=== PATIENT | female | born 1950 | race Caucasian/White ===

== ENCOUNTER 2018-03-31 06:45 | Inpatient (IN) ==
[2018-03-27 13:23] LABS: Appearance,Urine CLEAR; Bacteria,Urine 0 /hpf (0); Bilirubin,Urine NEG (NEG); Color,Urine YELLOW; Glucose,Urine (UA) NEGATIVE (NEG); Leukocyte Esterase,Urine 25 /uL (NEG); Mucus,Urine FEW /hpf (0); Protein,Urine NEG (NEG); Specific Gravity,Urine 1.023 (1.000-1.035); Urine Blood 0.03 mg/dL (<0.03); Urine RBC 7 /hpf (0-1); Urine Squamous Epithelial Cell 1 /hpf (0-4); Urine WBC 1 /hpf (0-4); Urobilinogen,Urine NEG (NEG)
[2018-03-27 14:35] LABS: Basophils # (Auto) 0 K/mcL (0.0-0.3); Basophils % (Auto) 0.4 % (0.0-2.0); Eosinophils # (Auto) 0.1 K/mcL (0.0-0.7); Eosinophils % (Auto) 1.1 % (0.0-7.0); Granulocytes % (Auto) 60.6 % (38.0-78.0); Lymphocytes # (Auto) 1.6 K/mcL (1.5-4.8); Lymphocytes % (Auto) 30.2 % (15.5-49.0); Mean Cell Volume 99.2 fL (80.0-100.0); Mean Corpuscular HGB Conc 34.3 g/dL (31.0-36.0); Monocytes # (Auto) 0.4 K/mcL (0.1-0.9); Monocytes % (Auto) 7.7 % (1.0-12.0); Platelet Count 159 K/mcL (140-440); RBC 3.72 M/mcL (4.00-5.20); Red Cell Distribution Width 13.6 % (11.5-14.5)
[2018-03-27 14:46] LABS: Blood Urea Nitrogen 19 mg/dl (8-23)
[2018-03-31] MEDS ORDERED: CELECOXIB 200 MG CAPSULE PO SCH (07:00)
[2018-03-31] MEDS ORDERED: PREGABALIN 75 MG CAPSULE PO SCH (07:00)
[2018-03-31] MEDS ORDERED: ceFAZolin 1 GM VIAL IV SCH (07:00)
[2018-03-31] MEDS ORDERED: oxyCODONE 10 MG TAB.ER.12H PO SCH (07:00)
[2018-03-31] MEDS ORDERED: 0.9 % SODIUM CHLORIDE 9 ML, KETOROLAC 30 MG, ROPIVACAINE HCL/PF 49.5 ML, EPINEPHrine 0.... IJ SCH (07:00)
[2018-03-31] MEDS ORDERED: TRANEXAMIC ACID 1,000 MG/10 ML VIAL IV ONE (09:00)
[2018-03-31] MEDS ORDERED: LIDOCAINE HCL/PF 100 MG/5 ML SYRINGE IV ONE (09:00)
[2018-03-31] MEDS ORDERED: PROPOFOL 200 MG/20 ML VIAL IV ONE (09:00)
[2018-03-31] MEDS ORDERED: GLYCOPYRROLATE 0.2 MG/ML VIAL IV ONE (09:00)
[2018-03-31] MEDS ORDERED: KETAMINE 100 MG/ML ML IV ONE (09:00)
[2018-03-31] MEDS ORDERED: ONDANSETRON 4 MG/2 ML VIAL IV ONE (09:00)
[2018-03-31] MEDS ORDERED: ROPIVACAINE HCL/PF 30 ML VIAL IJ ONE (09:00)
[2018-03-31] MEDS ORDERED: PHENYLEPHRINE 10 MG/ML VIAL IV ONE (09:00)
[2018-03-31] MEDS ORDERED: MIDAZOLAM 2 MG/2 ML VIAL IV ONE (09:00)
[2018-03-31] MEDS ORDERED: BENZOCAINE/MENTHOL 1 LOZENGE PO PRN ×2 (10:14→10:25)
[2018-03-31] MEDS ORDERED: fentaNYL 100 MCG/2 ML VIAL IV PRN (10:14)
[2018-03-31] MEDS ORDERED: IPRATROPIUM/ALBUTEROL 3 ML AMPUL.NEB NEB PRN (10:14)
[2018-03-31] MEDS ORDERED: ACETAMINOPHEN 1,000 MG/100 ML BOTTLE IV ONE (10:14)
[2018-03-31] MEDS ORDERED: MEPERIDINE 25 MG/ML SYRINGE IV PRN (10:14)
[2018-03-31] MEDS ORDERED: ONDANSETRON 4 MG/2 ML VIAL IV PRN ×2 (10:14→10:25)
[2018-03-31] MEDS ORDERED: LACTATED RINGERS 1,000 ML IV SCH (10:15)
[2018-03-31] MEDS ORDERED: traMADol 50 MG TABLET PO PRN (10:24)
[2018-03-31] MEDS ORDERED: ALBUTEROL SULFATE 1 PUFF INHALER INH PRN (10:24)
--- NOTE | 2018-03-31 10:24 | Brief Operative Note ---
Date of procedure: 03/31/18 Pre-op diagnosis: left knee oa Post-op diagnosis: same Procedure: left total knee arthroplasty Grafts/Implants: Yes Anesthesia: spinal Complications: none Surgeon: David Tyler Visually Impaired Teacher: Alia Suh Estimated blood loss (cc): 150 Tourniquet Time (Minutes): 78 Specimens Removed/Pathology: none sent Condition: stable Disposition: PACU
[2018-03-31] MEDS ORDERED: ACETAMINOPHEN 325 MG TABLET PO PRN (10:25)
[2018-03-31] MEDS ORDERED: METHOCARBAMOL 750 MG TABLET PO PRN (10:25)
[2018-03-31] MEDS ORDERED: FLEETS ADULT ENEMA PR PRN (10:25)
[2018-03-31] MEDS ORDERED: ONDANSETRON ODT 4 MG TABLET SL PRN (10:25)
[2018-03-31] MEDS ORDERED: TRANEXAMIC ACID 1,000 MG/10 ML VIAL IV SCH (10:25)
[2018-03-31] MEDS ORDERED: MAGNESIUM HYDROXIDE 30 ML ORAL.SUSP PO PRN (10:25)
[2018-03-31] MEDS ORDERED: BISACODYL 10 MG SUPP.RECT PR PRN (10:25)
[2018-03-31] MEDS ORDERED: POLYETHYLENE GLYCOL 3350 17 GM PACKET PO PRN (10:25)
[2018-03-31] MEDS ORDERED: GENTAMICIN SULFATE 800 MG/20 ML VIAL IR ONE (10:51)
--- NOTE | 2018-03-31 11:22 | Operative Note ---
DATE OF OPERATION: 03/31/2018 PREOPERATIVE DIAGNOSIS: Degenerative joint disease, left knee. POSTOPERATIVE DIAGNOSIS: Degenerative joint disease, left knee. PROCEDURE: Left total knee arthroplasty. SURGEON: Prem Tyler M.D. HEAT REGULATOR SURGEON: Alia Suh PA-C ANESTHESIA: Spinal with LMA assist. ESTIMATED BLOOD LOSS: 150 mL COMPLICATIONS: None noted. SPECIMENS REMOVED: None. DRAINS: None. TOURNIQUET TIME: 78 minutes at 300 mmHg. IMPLANTS: DePuy CMW2 bone cement standard x4, DePuy Attune femoral posterior stabilized size 6 left narrow, DePuy Attune tibial insert fixed bearing posterior stabilized size 6, 5 mm AOX, DePuy Attune tibial system revision, tibial based fixed bearing size 4 cemented, DePuy Attune patella medialized dome 35 mm cemented AOX. INDICATIONS: The patient has had a long-standing history of worsening pain in the knee that has failed conservative treatment. Radiographs have confirmed advanced degenerative joint disease. After a long discussion about treatment options, the patient elected to proceed with a knee arthroplasty. The risks and benefits were discussed with the patient in detail including, but not limited to, the risks of anesthesia, problems with the heart or lungs related to anesthesia, infection, compromise or injury to the nerves and blood vessels, deep venous thrombosis, pulmonary embolism, pneumonia, continued pain after surgery, worsening pain or symptoms after surgery, swelling, loss of motion, instability, leg length discrepancy, and need for repeat surgery. DESCRIPTION OF PROCEDURE: The patient was seen in the pre-anesthesia waiting room where all questions were answered and the correct side and site were identified and marked. The patient was transferred to the operating room and administered the anesthetic and given pre-operative antibiotics. A time-out was then called. The extremity was prepped and draped, exsanguinated, and the tourniquet was inflated to 300 mmHg. A midline skin incision was then made with a standard medial parapatellar arthrotomy. Debridement of the menisci, ACL, and PCL was performed followed by balancing releases in the medial lateral plane. We then established intramedullary access to both the femur and tibia in a standard fashion. The femoral guide aries was initially placed with the distal femoral guide, pinned into place, and the distal femoral cut was performed and checked with a flat plate. We then turned our attention to the tibia. The intramedullary guide was placed with the proximal tibial cutting block. The block was appropriately positioned off the affected side, varus and valgus was checked with the extra-medullary guide, and the block was pinned into place. The proximal tibial cut was performed and the tibia was prepared for the tibial implant with appropriate rotation. The tibia, femur, and posterior compartment were debrided of osteophytes, loose bodies, and meniscal fragments We then used the gap balancing technique to balance extension with the first two cuts and good balancing was obtained with a 10 millimeter gap block. We turned our attention back to the femur and used the referencing block and implant to size appropriately. Using the gap balancing technique for the flexion space we set our rotation of the femur off the tibial cut. Anesthesia gave the patient 1 gram of Tranexamic Acid via an intravenous route. We placed the 4 in 1 cutting block and made anterior, posterior, and chamfer cuts. Box plasty cuts were then made in a standard fashion for the posterior stabilized prosthesis. We then completed osteophyte release and posterior capsule release from the posterior compartment. Trials were placed and we chose the polyethylene insert thickness that provided the best stability in all planes. With the trials in place, we did a measured resection for a resurfacing patella. We sized the patella and placed the patella trial and performed a lateral facetectomy with the saw and rongeur. Good tracking was obtained. We removed all trials, irrigated and dried all cut surfaces. We cemented the components into place including tibia, femur and patella. We placed a trial liner and held the knee in full extension with the patella compressed while the cement cured. We then removed all excess cement and placed the final polyethylene tibiofemoral component. Irrigation with 3 liters of antibiotic saline was then performed using jet-lavage. We let the tourniquet down and coagulated bleeding vessels. We injected a 100 cubic centimeter volume including Ropivacaine 49.25 cubic centimeters at 5 milligrams per cubic centimeter, Ketorolac 30 milligrams, and Epinephrine 0.5 milligrams into 100 cubic centimeters volume of normal saline. We closed the retinaculum with looped #2 Stratafix and 0 Vicryl. We closed the subcutaneous tissue and skin in layers out to Dermabond on the skin. A sterile pressure dressing was applied. All needle and sponge counts were correct. The patient was transferred to the recovery room in stable condition. [id number] Job ID: [id number] Doc ID: [id number] Prem Tyler MD
--- NOTE | 2018-03-31 11:35 | XRay Report ---
HISTORY: Postop knee replacement FINDINGS: There is a well positioned total knee prosthesis. No fracture is present and there are no abnormal soft tissue calcifications around the joint. IMPRESSION: Well-positioned left knee prosthesis Interpreted and Authenticated by: Scar Dolan 03/31/18
[2018-03-31] MEDS: 0.9 % SODIUM CHLORIDE 1,000 ML IV SCH ×2 (12:20→22:29)
[2018-03-31] MEDS: KETOROLAC 15 MG/ML VIAL IV SCH ×3 (12:22→23:46)
[2018-03-31] MEDS: PRAMIPEXOLE 0.25 MG TABLET PO SCH ×3 (12:22→23:47)
[2018-03-31] MEDS: 0.9 % SODIUM CHLORIDE 10 ML SYRINGE IV SCH ×2 (13:12→21:10)
[2018-03-31] MEDS: ceFAZolin 1 GM VIAL IV SCH ×2 (15:49→23:46)
[2018-03-31] MEDS: oxyCODONE/APAP 5/325MG TABLET PO PRN ×3 (16:05→20:15)
[2018-03-31] MEDS: SENNOSIDES 1 TABLET PO SCH (20:15)
[2018-03-31] MEDS: DOCUSATE SODIUM 100 MG CAPSULE PO SCH (20:15)
[2018-03-31] MEDS: SIMVASTATIN 20 MG TABLET PO SCH (20:15)
[2018-03-31] MEDS: ASPIRIN 325 MG ENTERIC COATED TABLET PO SCH (20:16)
[2018-03-31] MEDS: clonazePAM 0.5 MG TABLET PO SCH (20:16)
[2018-04-01] MEDS: 0.9 % SODIUM CHLORIDE 10 ML SYRINGE IV SCH ×4 (00:16→20:23)
[2018-04-01] MEDS: oxyCODONE/APAP 5/325MG TABLET PO PRN ×5 (00:17→20:24)
[2018-04-01] MEDS: KETOROLAC 15 MG/ML VIAL IV SCH ×4 (05:20→23:37)
[2018-04-01] MEDS: PRAMIPEXOLE 0.25 MG TABLET PO SCH ×4 (05:21→23:37)
--- NOTE | 2018-04-01 07:21 | Orthopedic Progress Note ---
Subjective Patient information: Note initiated : 04/01/18 at 7:20 am Service Date, if different from initiated Date: [] Patient: Siobhan Mijares 67 y/o F admitted on 03/31/18 for Left Total Knee Arthroplasty. Chief Complaint: [] Interval history: doing well. slow to mobilize Objective Vital signs: Vital Signs Temp Pulse Resp BP BP BP Pulse Ox 04/01/18 07:08 96.7 F L 72 16 95/57 92 04/01/18 03:05 97.7 F 69 16 117/69 92 03/31/18 23:30 71 14 100/64 91 03/31/18 17:29 97.3 F 73 20 120/67 93 03/31/18 14:42 97.4 F 71 20 104/58 93 03/31/18 14:00 103/61 03/31/18 13:30 79 89/58 92 03/31/18 12:55 86 122/69 95 03/31/18 12:28 78 146/61 95 03/31/18 12:10 75 150/70 96 03/31/18 11:55 77 146/67 96 03/31/18 11:40 79 142/64 98 03/31/18 11:34 16 138/69 03/31/18 11:25 97.5 F 76 18 138/69 92 03/31/18 11:11 97.0 F 82 16 142/59 98 03/31/18 10:58 80 20 139/45 100 03/31/18 10:53 82 20 124/65 100 03/31/18 10:48 81 19 126/56 100 03/31/18 10:43 98.1 F 78 17 114/68 99 Intake and Output 03/31/18 04/01/18 04/01/18 21:59 05:59 13:59 Intake Total 1940 / 1940 150 / 150 Output Total 300 / 300 Balance 1640 / 1640 150 / 150 Intake: IV 1000 / 1000 Sodium Chloride 0.9% 1,000 ml @ 1000 / 1000 125 mls/hr IV .Q8H [facility] Rx#: [id number] Oral 940 / 940 150 / 150 Output: Void Amount 300 / 300 Other: Meal Dinner Percent of Meal Consumed 75% # Voids 1 1 Weight 239 lb Intake & Output: Intake & Output 03/31/18 04/01/1804/01/18 21:59 05:59 13:59 Intake Total 1940 / 1940 150 / 150 Output Total 300 / 300 Balance 1640 / 1640 150 / 150 Weight 239 lb Intake: IV 1000 / 1000 Sodium Chloride 0.9% 1,000 ml @ 1000 / 1000 125 mls/hr IV .Q8H [facility] Rx#: [id number] Oral 940 / 940 150 / 150 Output: Void Amount 300 / 300 Other: Meal Dinner Percent of Meal Consumed 75% # Voids 1 1 Incision: Yes healing Incision clean and dry: Yes Dressing: Yes clean, Yes dry, Yes intact Weight bearing status: full Neurological exam IM: Yes abnormal gait, Yes alert, Yes oriented X3, Yes motor sensory intact, Yes neurovascular intact Extremities exam IM: No calf tenderness, Yes joint swelling, Yes Foot pink and warm, Yes neurovascular intact - Labs CBC & BMP: 04/01/18 04:46 03/27/18 11:50 Labs: Orthopedic Labs 03/27/18 11:50 PT 13.6 INR 1.0 04/01/18 03/27/18 04:46 11:51 Hgb 11.3 L 12.6 Hct 33.4 L 36.9 Assessment and Plan (1) Knee osteoarthritis pod 1 s/p tka wbat pain control dvt prophylaxis d/c planning - likely rehab friday Status: Acute
--- NOTE | 2018-04-01 07:22 | Discharge Summary ---
Ortho Discharge - TKA - Patient Instructions Diet: Regular Diet Activity: activity as tolerated, ambulate with assistive device, weight bearing as tolerated Total Knee Protocol: For Total Knee: Start ROM ALBARO with stationary bike or rocking chair. Work on gaining full extension of knee. Posterior dislocation precautions provided. Hip abductor strengthening and gait training instructions provided. Apply Cryocuff as instructed. Dressing Care: May shower in 2 days - Problem Maintenance (1) Knee osteoarthritis Status: Acute - Follow Up Plan Follow Up Appointments: Alia Suh PA-C [Physician Financial Administrative Assistant] - 04/15/18 11:00 am Disposition: Xfer SNF Prognosis: Good Rehab Potential: Good I certify that the patient requires SNF services: Yes Overall status at discharge: patient is progressing back to baseline
[2018-04-01] MEDS: LEVOTHYROXINE 150 MCG TABLET PO SCH (07:52)
[2018-04-01] MEDS: LOSARTAN 50 MG TABLET PO SCH (08:55)
[2018-04-01] MEDS: DOCUSATE SODIUM 100 MG CAPSULE PO SCH ×2 (08:55→20:23)
[2018-04-01] MEDS: ASPIRIN 325 MG ENTERIC COATED TABLET PO SCH ×2 (08:55→20:23)
[2018-04-01] MEDS: SENNOSIDES 1 TABLET PO SCH (20:23)
[2018-04-01] MEDS: clonazePAM 0.5 MG TABLET PO SCH (20:23)
[2018-04-01] MEDS: SIMVASTATIN 20 MG TABLET PO SCH (20:23)
[2018-04-02] MEDS: oxyCODONE/APAP 5/325MG TABLET PO PRN ×3 (03:53→19:34)
[2018-04-02] MEDS: KETOROLAC 15 MG/ML VIAL IV SCH (05:34)
[2018-04-02] MEDS: PRAMIPEXOLE 0.25 MG TABLET PO SCH ×4 (05:34→23:06)
[2018-04-02] MEDS: 0.9 % SODIUM CHLORIDE 10 ML SYRINGE IV SCH ×3 (05:35→20:50)
--- NOTE | 2018-04-02 06:40 | Orthopedic Progress Note ---
Subjective Patient information: Note initiated : 04/02/18 at 6:38 am Service Date, if different from initiated Date: [] Patient: Siobhan Mijares 67 y/o F admitted on 03/31/18 for Left Total Knee Arthroplasty. Chief Complaint: [POD #2 s/p left TKA Patient doing very well. Reports minimal pain. Ambulating well. No CP, SOB, nausea, numbness, tingling or calf pain. No questions or concerns.] Objective Vital signs: Vital Signs Temp Pulse Resp BP BP BP Pulse Ox 04/02/18 03:48 97.8 F 75 22 152/60 93 04/02/18 00:00 98.4 F 77 22 136/74 93 04/01/18 20:00 98.5 F 82 24 H 137/81 95 04/01/18 15:17 97.8 F 75 20 134/70 95 04/01/18 12:35 96.7 F L 78 16 120/73 96 04/01/18 08:57 101/62 04/01/18 07:42 16 95/57 04/01/18 07:08 96.7 F L 72 16 95/57 92 Intake and Output 04/01/18 04/02/18 04/02/18 21:59 05:59 13:59 Intake Total 800 / 800 275 / 275 Output Total 325 / 325 1150 / 1150 Balance 475 / 475 -875 / -875 Intake: Oral 800 / 800 275 / 275 Output: Void Amount 325 / 325 1150 / 1150 Other: Meal Dinner Percent of Meal Consumed 100% Urine Appearance Clear Clear Urine Color Light [place] Dark Yellow Urine Odor Strong Normal Weight 241 lb Intake & Output: Intake & Output 04/01/18 04/02/18 04/02/18 21:59 05:59 13:59 Intake Total 800 / 800 275 / 275 Output Total 325 / 325 1150 / 1150 Balance 475 / 475 -875 / -875 Weight 241 lb Intake: Oral 800 / 800 275 / 275 Output: Void Amount 325 / 325 1150 / 1150 Other: Meal Dinner Percent of Meal Consumed 100% Urine Appearance Clear Clear Urine Color Light [place] Dark Yellow Urine Odor Strong Normal Incision: Yes healing, No draining, No red, No swollen, No inflamed, Yes clean and dry Incision clean and dry: Yes Dressing: Yes clean, Yes dry, Yes intact Weight bearing status: as tolerated Range of motion: full foot and ankle Neurological exam IM: Yes alert, Yes oriented X3, Yes motor sensory intact, Yes neurovascular intact Extremities exam IM: No calf tenderness, Yes normal capillary refill, No Brett' s sign, Yes Foot pink and warm, Yes neurovascular intact - Periperhal Pulses Peripheral pulses: 2+: dorsalis pedis (L), dorsalis pedis (R), posterior tibialis (L), posterior tibialis (R) - Labs CBC & BMP: 04/02/18 04:50 03/27/18 11:50 Labs: Orthopedic Labs 03/27/18 11:50 PT 13.6 INR 1.0 04/02/18 04/01/18 03/27/18 04:50 04:46 11:51 Hgb 10.4 L 11.3 L 12.6 Hct 31.0 L 33.4 L 36.9 Assessment and Plan (1) Knee osteoarthritis POD #2 s/p left TKA: -d/c to [facility] Friday04/03/18 -pain control -ASA 325mg BID x 4 weeks for DVT prophylaxis -WBAT -dermabond protocol -f/u in office 10-14 days for PO Status: Acute
[2018-04-02] MEDS: LOSARTAN 50 MG TABLET PO SCH (08:53)
[2018-04-02] MEDS: DOCUSATE SODIUM 100 MG CAPSULE PO SCH ×2 (08:53→20:49)
[2018-04-02] MEDS: LEVOTHYROXINE 150 MCG TABLET PO SCH (08:54)
[2018-04-02] MEDS: ASPIRIN 325 MG ENTERIC COATED TABLET PO SCH ×2 (08:54→20:49)
[2018-04-02] MEDS: SIMVASTATIN 20 MG TABLET PO SCH (20:49)
[2018-04-02] MEDS: clonazePAM 0.5 MG TABLET PO SCH (20:49)
[2018-04-02] MEDS: SENNOSIDES 1 TABLET PO SCH (20:49)
[2018-04-03] MEDS: oxyCODONE/APAP 5/325MG TABLET PO PRN (00:57)
[2018-04-03] MEDS: PRAMIPEXOLE 0.25 MG TABLET PO SCH ×2 (05:36→11:44)
[2018-04-03] MEDS: 0.9 % SODIUM CHLORIDE 10 ML SYRINGE IV SCH (05:36)
[2018-04-03] MEDS: LEVOTHYROXINE 150 MCG TABLET PO SCH (07:00)
--- NOTE | 2018-04-03 07:42 | Orthopedic Progress Note ---
Subjective Patient information: Note initiated : 04/03/18 at 7:41 am Service Date, if different from initiated Date: [] Patient: Siobhan Mijares 67 y/o F admitted on 03/31/18 for Left Total Knee Arthroplasty. Chief Complaint: [] Interval history: doing well today. no complaints, did stairs. Objective Vital signs: Vital Signs Temp Pulse Resp BP Pulse Ox 04/03/18 07:01 97.8 F 18 130/72 98 04/03/18 03:25 97.6 F 79 22 151/76 97 04/02/18 23:07 98.0 F 76 22 129/74 97 04/02/18 20:00 98.5 F 76 18 131/70 96 04/02/18 16:58 98.1 F 80 20 145/71 96 04/02/18 16:00 80 04/02/18 12:00 74 04/02/18 08:00 73 Intake and Output 04/02/18 04/03/18 04/03/18 21:59 05:59 13:59 Intake Total 800 / 800 175 / 175 Output Total 1100 / 1100 1752 / 1752 Balance -300 / -300 -1577 / -1577 Intake: Oral 800 / 800 175 / 175 Output: Void Amount 1100 / 1100 1750 / 1750 # of times incontinent of urine 2 / 2 Other: Urine Appearance Clear Urine Color Bright Yellow Urine Odor Normal # Voids 1 Weight 239 lb Intake & Output: Intake & Output 04/02/18 04/03/18 04/03/18 21:59 05:59 13:59 Intake Total 800 / 800 175 / 175 Output Total 1100 / 1100 1752 / 1752 Balance -300 / -300 -1577 / -1577 Weight 239 lb Intake: Oral 800 / 800 175 / 175 Output: Void Amount 1100 / 1100 1750 / 1750 # of times incontinent of urine 2 / 2 Other: Urine Appearance Clear Urine Color Bright Yellow Urine Odor Normal # Voids 1 Incision: Yes healing Incision clean and dry: Yes Dressing: Yes clean, Yes dry, Yes intact Weight bearing status: full Neurological exam IM: Yes abnormal gait, Yes alert, Yes oriented X3, Yes motor sensory intact, Yes neurovascular intact Extremities exam IM: No calf tenderness, Yes Foot pink and warm, Yes neurovascular intact - Labs CBC & BMP: 04/03/18 04:54 03/27/18 11:50 Labs: Orthopedic Labs 03/27/18 11:50 PT 13.6 INR 1.0 04/03/18 04/02/18 04/01/18 04:54 04:50 04:46 Hgb 10.1 L 10.4 L 11.3 L Hct 29.8 L 31.0 L 33.4 L 03/27/18 11:51 Hgb 12.6 Hct 36.9 Assessment and Plan (1) Knee osteoarthritis pod 3 s/p tka wbat pain control dvt prophylaxis d/c planning - rehab today Status: Acute
[2018-04-03] MEDS: ASPIRIN 325 MG ENTERIC COATED TABLET PO SCH (08:01)
[2018-04-03] MEDS: LOSARTAN 50 MG TABLET PO SCH (08:01)
[2018-04-03] MEDS: DOCUSATE SODIUM 100 MG CAPSULE PO SCH (08:01)
== END 2018-04-03 13:05 | DRG 470 ==
LOC: MEDSUR 06:45
PROVIDERS: ADMIT Orthopaedic Surgery Sports Medicine; ATTEND Orthopaedic Surgery Sports Medicine
CPT/HCPCS: 62322; 90686; 97161; 97166; C1776; J0131; J0690; J1580; J1885; J2001; J2250; J2270; J2370; J2405; J2795; J7030; J7120

== ENCOUNTER 2023-01-31 16:21 | Inpatient (IN) ==
[2023-01-31] MEDS ORDERED: IOPAMIDOL 100 ML BOTTLE IV ONE (16:22)
[2023-01-31 17:48] LABS: Basophils # (Auto) 0.03 K/mcL (0.00-0.30); Basophils % (Auto) 0.2 % (0.0-2.0); Eosinophils # (Auto) 0.01 K/mcL (0.00-0.70); Eosinophils % (Auto) 0.1 % (0.0-7.0); Hematocrit 27.2 % (34.1-44.9); Hemoglobin 8.8 g/dL (11.2-15.7); Lymphocytes # (Auto) 1.41 K/mcL (1.50-4.80); Lymphocytes % (Auto) 7.1 % (15.5-49.0); Mean Cell Volume 95.4 fL (80.0-100.0); Mean Corpuscular HGB Conc 32.4 g/dL (31.0-36.0); Mean Platelet Volume 11.6 fL (8.8-12.5); Monocytes # (Auto) 0.67 K/mcL (0.10-0.90); Monocytes % (Auto) 3.4 % (1.0-12.0); Neutrophils % (Auto) 87.8 % (38.0-78.0); Platelet Count 472 K/mcL (140-440); RBC 2.85 M/mcL (3.59-5.38)
[2023-01-31] MEDS ORDERED: PIPERACILLIN SODIUM/TAZOBACTAM 3.375 GM in DEXTROSE 5% IN WATER 50 ML IV ONE (18:11)
[2023-01-31 18:16] LABS: ALT/SGPT < 5 U/L (<40); AST/SGOT 20 U/L (<32); Albumin 2.5 gm/dL (3.2-5.2); Albumin/Globulin Ratio 0.5 (1.0-2.3); Alkaline Phosphatase 148 U/L (39-117); Bilirubin,Total 0.6 mg/dL (0.1-1.0); Blood Urea Nitrogen 33 mg/dL (8-23); Calcium 9.9 mg/dL (8.6-10.4); Carbon Dioxide 27 mmol/L (22-30); Chloride 110 mmol/L (96-108); Globulin 4.6 gm/dL (2.2-3.7); Glomerular Filtration Rate 55; Glucose 136 mg/dL (70-105)
[2023-01-31] MEDS ORDERED: LACTATED RINGERS 1,000 ML IV ONE (18:36)
[2023-01-31 19:54] LABS: Appearance,Urine CLOUDY (Clear); Bacteria,Urine FEW /hpf (0); Bilirubin,Urine Negative (Negative); Color,Urine Yellow; Culture Indicated,Urine No; Glucose,Urine (UA) Negative (Negative); Ketones,Urine 5 mg/dL (Negative); Leukocyte Esterase,Urine Negative /uL (Negative); Mucus,Urine MANY /hpf; Nitrate,Urine Negative (Negative); Protein,Urine 30 mg/dL (Negative); Specific Gravity,Urine 1.023 (1.000-1.035); Urine Amorphous Crystals FEW /hpf; Urine Blood 0.03 mg/dL (Negative); Urine Hyaline Cast 39 /lph (0-2); Urine RBC 4 /hpf (0-3); Urine Squamous Epithelial Cell 17 /hpf (0-4); Urine WBC 2 /hpf (0-4)
[2023-01-31] MEDS ORDERED: VANCOMYCIN 1,500 MG in 0.9 % SODIUM CHLORIDE 500 ML IV ONE (19:54)
[2023-01-31] MEDS ORDERED: 0.9 % SODIUM CHLORIDE 500 ML ONE (20:02)
[2023-01-31] MEDS ORDERED: 0.9 % SODIUM CHLORIDE 10 ML SYRINGE IV SCH (22:44)
[2023-01-31] MEDS ORDERED: ONDANSETRON 4 MG/2 ML VIAL IV PRN (22:44)
[2023-01-31] MEDS ORDERED: HYDROmorphone 1 MG/ML SYRINGE ONE (22:51)
[2023-01-31] MEDS: HYDROmorphone 1 MG/ML SYRINGE IV PRN (23:10)
[2023-01-31] MEDS: 0.9 % SODIUM CHLORIDE 10 ML SYRINGE IV SCH (23:24)
[2023-02-01] MEDS: 0.9 % SODIUM CHLORIDE 10 ML SYRINGE IV SCH ×5 (04:49→21:36)
[2023-02-01] MEDS: DOCUSATE SODIUM 100 MG CAPSULE PO SCH ×2 (09:16→21:21)
[2023-02-01] MEDS: HYDROmorphone 1 MG/ML SYRINGE IV PRN ×5 (09:17→23:17)
[2023-02-01] MEDS ORDERED: morphine 10 MG/ML VIAL NEB PRN (14:58)
[2023-02-01] MEDS ORDERED: GLYCOPYRROLATE 0.2 MG/ML VIAL IV PRN (15:00)
[2023-02-01] MEDS: LORazepam 2 MG/ML VIAL IV PRN ×2 (15:01→17:33)
[2023-02-01] MEDS: SCOPOLAMINE 1 PATCH PATCH TOPICAL SCH (16:13)
[2023-02-01] MEDS: SENNOSIDES 1 TABLET PO SCH (21:21)
[2023-02-02] MEDS: 0.9 % SODIUM CHLORIDE 10 ML SYRINGE IV SCH ×9 (06:06→20:26)
[2023-02-02] MEDS: HYDROmorphone 1 MG/ML SYRINGE IV PRN ×5 (07:16→20:24)
[2023-02-02] MEDS: DOCUSATE SODIUM 100 MG CAPSULE PO SCH ×2 (09:00→20:47)
[2023-02-02] MEDS: LORazepam 2 MG/ML VIAL IV PRN ×3 (09:52→18:12)
[2023-02-02] MEDS ORDERED: ACETAMINOPHEN 1,000 MG/100 ML BAG IV PRN (19:49)
[2023-02-02] MEDS ORDERED: BISACODYL 10 MG SUPP.RECT PR PRN (19:54)
[2023-02-02] MEDS ORDERED: ALBUTEROL SULFATE 2.5 MG/3 ML NEBULIZER NEB PRN (19:55)
[2023-02-02] MEDS ORDERED: ACETAMINOPHEN 1,000 MG/100 ML BAG IV ONE (20:34)
[2023-02-02] MEDS: SENNOSIDES 1 TABLET PO SCH (20:47)
[2023-02-03] MEDS: HYDROmorphone 1 MG/ML SYRINGE IV PRN ×7 (00:15→23:19)
[2023-02-03] MEDS: 0.9 % SODIUM CHLORIDE 10 ML SYRINGE IV SCH ×6 (02:27→23:19)
[2023-02-03] MEDS: LORazepam 2 MG/ML VIAL IV PRN ×2 (05:23→20:55)
[2023-02-03] MEDS: DOCUSATE SODIUM 100 MG CAPSULE PO SCH ×2 (12:48→21:08)
[2023-02-03] MEDS: SENNOSIDES 1 TABLET PO SCH (21:08)
[2023-02-04] MEDS: 0.9 % SODIUM CHLORIDE 10 ML SYRINGE IV SCH ×3 (06:14→22:27)
[2023-02-04] MEDS: HYDROmorphone 1 MG/ML SYRINGE IV PRN ×5 (06:14→19:29)
[2023-02-04] MEDS: DOCUSATE SODIUM 100 MG CAPSULE PO SCH ×2 (10:08→22:27)
[2023-02-04] MEDS: SCOPOLAMINE 1 PATCH PATCH TOPICAL SCH (16:00)
[2023-02-04] MEDS: LORazepam 2 MG/ML VIAL IV PRN (19:30)
[2023-02-04] MEDS: SENNOSIDES 1 TABLET PO SCH (22:27)
[2023-02-05] MEDS: LORazepam 2 MG/ML VIAL IV PRN ×3 (04:22→11:38)
[2023-02-05] MEDS: 0.9 % SODIUM CHLORIDE 10 ML SYRINGE IV SCH ×2 (05:52→14:10)
[2023-02-05] MEDS ORDERED: LORazepam 2 MG/ML VIAL IM ONE (13:54)
[2023-02-05] MEDS: DOCUSATE SODIUM 100 MG CAPSULE PO SCH (13:57)
[2023-02-05] MEDS: HYDROmorphone 1 MG/ML SYRINGE IV PRN (14:08)
== END 2023-02-05 20:40 | disposition expired | DRG 871 ==
LOC: MEDSUR 16:21 → ED 16:21 → MEDSUR 22:35
PROVIDERS: ADMIT Internal Medicine; ATTEND Internal Medicine